=== PATIENT | female | born 1965 | race Native Hawaiian/Other Pacific Islander ===

== ENCOUNTER 2016-08-21 10:04 | Outpatient (CLI) | payer MEDICARE | END 2016-08-21 10:05 | disposition home or self-care (01) | LOC: LABHHL 10:04 | PROVIDERS: ATTEND Internal Medicine | DX: I10 Essential (primary) hypertension (principal); F32.9 Major depressive disorder, single episode, unspecified; K21.9 Gastro-esophageal reflux disease without esophagitis; E78.2 Mixed hyperlipidemia; Z79.899 Other long term (current) drug therapy | CPT/HCPCS: 36415; 80061; 83036 ==

== ENCOUNTER 2018-04-13 09:16 | Outpatient (CLI) | payer MEDICARE | END 2018-04-13 09:17 | disposition home or self-care (01) | LOC: LABHHL 09:16 | PROVIDERS: ATTEND Internal Medicine | DX: E11.9 Type 2 diabetes mellitus without complications (principal); E78.2 Mixed hyperlipidemia; I10 Essential (primary) hypertension; K21.9 Gastro-esophageal reflux disease without esophagitis | CPT/HCPCS: 36415; 83036 ==

== ENCOUNTER 2018-08-12 09:37 | Outpatient (CLI) | payer MEDICARE ==
[2018-08-12 12:20] LABS: Chol/HDL Ratio 2.9 %
== END 2018-08-12 09:38 | disposition home or self-care (01) ==
LOC: LAB 09:37
PROVIDERS: ATTEND Internal Medicine
DX: E11.9 Type 2 diabetes mellitus without complications (principal); E78.2 Mixed hyperlipidemia
CPT/HCPCS: 36415; 80061; 83036

== ENCOUNTER 2018-12-26 11:05 | Outpatient (CLI) | payer MEDICARE ==
[2018-12-26 12:21] LABS: Basophils % (Auto) 0.6 % (0.0-1.8); Eosinophils % (Auto) 0.7 % (0.0-4.3); Hematocrit 45.7 % (30.3-42.9); Hemoglobin 15.4 gm/dl (10.1-14.3); Lymphocytes % (Auto) 30.9 % (13.4-35.0); Mean Corpuscular HGB Conc 34 % (30-34); Mean Corpuscular Volume 88 fl (79-97); Monocytes # (Auto) 0.8 K/mm3 (0.0-0.8); Monocytes % (Auto) 12.1 % (0.0-7.3); Platelet Count 199 K/mm3 (140-440); Red Blood Count 5.22 M/mm3 (3.65-5.03)
[2018-12-26 12:48] LABS: Alanine Aminotransferase 33 units/L (7-56); Albumin 4.9 g/dL (3.9-5); BUN/Creatinine Ratio 24; Blood Urea Nitrogen 17 mg/dL (7-17); Calcium 9.5 mg/dL (8.4-10.2); Hemolysis Index 2; LDL Cholesterol,Direct 97 mg/dL (50-130)
[2018-12-26 13:37] LABS: Chol/HDL Ratio 3.24 %; HDL Cholesterol 49 mg/dL (40-59)
[2018-12-28 12:30] LABS: Vitamin D, 25-OH, D2 <4 ng/mL
== END 2018-12-26 11:06 | disposition home or self-care (01) ==
LOC: LAB 11:05
PROVIDERS: ATTEND Internal Medicine
DX: Z13.21 Encounter for screening for nutritional disorder (principal); Z13.29 Encounter for screening for other suspected endocrine disorder; E78.2 Mixed hyperlipidemia; E11.9 Type 2 diabetes mellitus without complications
CPT/HCPCS: 36415; 80053; 80061; 82306; 82607; 83036; 84443; 85025

== ENCOUNTER 2019-04-06 09:57 | Outpatient (CLI) | payer MEDICARE | END 2019-04-06 09:58 | disposition home or self-care (01) | LOC: LAB 09:57 | PROVIDERS: ATTEND Internal Medicine | DX: E11.9 Type 2 diabetes mellitus without complications (principal); E78.2 Mixed hyperlipidemia | CPT/HCPCS: 36415; 80061; 83036 ==